=== PATIENT | female | born 1995 | race Caucasian/White ===

== ENCOUNTER 2017-06-16 09:49 | Emergency (ER) | payer SELFPAY ==
[~2017-06-16] VITALS: Ht 154.9 cm; Wt 55.0 kg
[2017-06-16 09:50] VITALS: BP 124/58; PULSE 64; RESP 16; TEMP 98.8; O2SAT 100
--- NOTE | 2017-06-16 10:43 | PD ---
HPI Chief Complaint: ENT Complaint Time Seen by Provider: 10:19 Travel History International Travel<30 days: No Contact w/Intl Traveler<30days: No Traveled to known affect area: No History of Present Illness HPI 22 year-old woman presents to the emergency department complaining of sore throat waxing and waning in severity over the past several days. She's had some fevers with it. Some painful swallowing. She does endorse some shortness of breath at night. She's not had a lot of trouble with tonsillitis or pharyngitis in the past. She did lose her voice. No definite sick contacts. Some cough cold symptoms with it. No other associated symptoms. History Past Medical History Medical History: Denies Significant Hx LMP: 04/2017 Social History Alcohol Use: No Tobacco Use: No Allergies-Medications (Allergen,Severity, Reaction): Coded Allergies: No Known Allergies (Unverified , 06/16/17) Review of Systems Except as stated in HPI: all other systems reviewed are Neg Physical Exam Narrative GENERAL: Well-nourished 22 year-old woman, no acute distress. SKIN: Focused skin assessment warm/dry. HEAD: Atraumatic. Normocephalic. EYES: Pupils equal and round. No scleral icterus. No injection or drainage. ENT: No nasal bleeding or discharge. Mucous membranes pink and moist. Pharynx with some tonsillitis, little bit of purulent exudates. TMs normal. NECK: Trachea midline. Some tender cervical adenopathy. CARDIOVASCULAR: Regular rate and rhythm. No murmur appreciated. RESPIRATORY: No accessory muscle use. Clear to auscultation. Breath sounds equal bilaterally. GASTROINTESTINAL: Abdomen soft, non-tender, nondistended. Hepatic and splenic margins not palpable. MUSCULOSKELETAL: No obvious deformities. No clubbing. No cyanosis. No edema. NEUROLOGICAL: Awake and alert. No obvious cranial nerve deficits. Motor grossly within normal limits. Normal speech. PSYCHIATRIC: Appropriate mood and affect; insight and judgment normal. Data Data Last Documented VS Vital Signs Date Time Temp Pulse Resp B/P (MAP) Pulse Ox O2 Delivery O2 Flow Rate FiO2 06/16/17 09:50 98.8 64 16 124/58 (80) 100 Orders Orders Group A Rapid Strep Screen (06/16/17 10:25) Strep Culture (Group A) (06/16/17 10:30) MDM Medical Decision Making Medical Screen Exam Complete: Yes Emergency Medical Condition: Yes Interpretation(s) Rapid strep negative Differential Diagnosis Pharyngitis, tonsillitis, laryngitis, URI, other Narrative Course Medical decision making 22 year-old woman presents emergent arm with tonsillitis pharyngitis symptoms. Looks well. Some. Exudates. We'll check rapid stream. Reassess. Diagnosis Primary Impression: Pharyngitis Additional Instructions: Take acetaminophen or ibuprofen as a for fever or body aches. You can return to work after you have had no fever for 24 hours. Drink plenty of fluids to stay well-hydrated. Follow-up with your primary doctor if you are not completely well in 7-10 days. Return to the emergency department for any worsening chest pain, trouble breathing, or any other new or worsening symptoms. Med/Other Pt SpecificInfo: Prescription(s) given Disposition: 01 DISCHARGE HOME Condition: Stable Mike Xiao MD Jun 16, 2017 10:43
== END 2017-06-16 11:12 | disposition home or self-care (01) ==
LOC: NEPD 09:49
DX: J02.9 Acute pharyngitis, unspecified (principal)
CPT/HCPCS: 87081; 87880; 99283